=== PATIENT | male | born 1960 | race Caucasian/White ===

== ENCOUNTER 2020-04-09 03:32 | Emergency (ER) | payer OTHER ==
[~2020-04-09] VITALS: Ht 190.5 cm; Wt 100.0 kg
[2020-04-09 03:36] VITALS: BP 121/82
--- NOTE | 2020-04-09 03:45 | NUR ---
pt refusing blood draw at this time. compliant with physical assessment for [facility]
== END 2020-04-09 03:52 ==
LOC: ER 03:33
DX: Z04.1 Encounter for examination and observation following transport accident (principal); Z02.89 Encounter for other administrative examinations; V89.2XXA Person injured in unspecified motor-vehicle accident, traffic, initial encounter; Y93.89 Activity, other specified; Y92.89 Other specified places as the place of occurrence of the external cause; Y99.8 Other external cause status
CPT/HCPCS: 99283